=== PATIENT | male | born 1960 | race African-American/Black ===

== ENCOUNTER 2021-12-03 15:05 | Emergency (ER) | payer MEDICAID ==
[~2021-12-03] VITALS: Ht 170.2 cm; Wt 79.0 kg
[2021-12-03] MEDS ORDERED: FUROSEMIDE 40MG/4ML VIAL IVP ONE (16:00)
[2021-12-03 16:18] LABS: BASOPHILS % 0.7 % (0.0-2.0); EOSINOPHILS % 0.7 % (0.0-5.0); HEMATOCRIT. 51.8 % (42.0-52.0); HEMOGLOBIN. 15.1 g/dL (14.0-18.0); LYMPHOCYTES % 24.5 % (20.0-50.0); MEAN CORPUSCULAR HEMOGLOBIN 25.1 pg (28.0-32.0); MEAN CORPUSCULAR VOLUME 86.1 fL (80.0-94.0); MONOCYTES % 9.6 % (2.0-8.0); NEUTROPHILS % 64.5 % (40.0-76.0); RED BLOOD CELL COUNT 6.02 mill/uL (4.7-6.1)
[2021-12-03 16:22] LABS: CHLORIDE 109 mEq/L (98-107)
[2021-12-03 17:14] LABS: PLATELET 281 x1000/uL (130-400)
[2021-12-03 17:15] LABS: MEAN PLATELET VOLUME 9.4 fl (7.4-10.4)
[2021-12-03 22:21] VITALS: BP 113/97
== END 2021-12-04 01:34 | disposition short-term general hospital (02) ==
LOC: ER 15:05
DX: N17.9 Acute kidney failure, unspecified (principal); I11.0 Hypertensive heart disease with heart failure; I50.9 Heart failure, unspecified; R06.00 Dyspnea, unspecified; J45.909 Unspecified asthma, uncomplicated; Z95.0 Presence of cardiac pacemaker; Z20.822 Contact with and (suspected) exposure to COVID-19
CPT/HCPCS: 36415; 71045; 80053; 83880; 84484; 85025; 85379; 87426; 93005; 96374; 99285; J1940